=== PATIENT | male | born 1940 | race Caucasian/White ===

== ENCOUNTER 2021-03-09 02:18 | Observation (INO) | payer MEDICARE, OTHER ==
[~2021-03-09] VITALS: Ht 175.3 cm; Wt 98.2 kg
[2021-03-09 02:52] LABS: IMMATURE GRANULOCYTES 0.2 % (0.0-5.0); MEAN CELL VOLUME 103.3 fL CALC (80.0-100.0); MEAN CORPUSCULAR HGB 33.3 pG CALC (26.0-32.0); MEAN CORPUSCULAR HGB CONC 32.3 g/dL CAL (32.0-36.0); NEUT# 3.13 thou/uL (1.82-7.42); RED CELL DISTRI WIDTH 15.9 % (11.5-15.5)
[2021-03-09 03:08] LABS: ALBUMIN 2.9 g/dL (3.2-5.0); ALKALINE PHOSPHATASE 177 u/l (38-126); AMYLASE 66 u/l (30-110); ANION GAP 9 (6-22 (CALC)); BILIRUBIN, TOTAL 0.7 mg/dL (0.0-1.4); BUN 13 mg/dL (8-23); BUN/CREATININE RATIO 13 (12-20 (CALC)); CARBON DIOXIDE 29 mmol/l (22-30); CHLORIDE 103 mmol/l (95-108); GFR > 60 ML/MIN (>=60 (CALC)); GFR FOR AFR.AMER. > 60 ML/MIN (>=60 (CALC)); LIPASE 131 u/l (23-300); POTASSIUM 4.2 mmol/l (3.5-5.1); SGOT/AST 26 u/l (19-48); SODIUM 137 mmol/l (137-146); TOTAL PROTEIN 6.6 g/dL (6.3-8.2)
[2021-03-09 03:20] LABS: MYOGLOBIN 35 ng/mL (0 - 121)
--- NOTE | 2021-03-09 03:24 | NUR ---
PT AWARE OF PLAN OF CARE; STATES NO FURTHER ASSISTANCE AT THIS TIME
[2021-03-09] MEDS ORDERED: ASPIRIN81 MG PO (03:37)
[2021-03-09] MEDS ORDERED: CLONIDINE0.1 MG TOP (03:38)
[2021-03-09] MEDS ORDERED: STOOL SOFTENER100 M1 PO (03:40)
[2021-03-09] MEDS ORDERED: EQL IRON SUPPL325 MG PO (03:41)
[2021-03-09] MEDS ORDERED: CVS MELATONIN PO (04:03)
[2021-03-09] MEDS ORDERED: PANTOPRAZOLE SO40 M3 PO (04:04)
[2021-03-09] MEDS ORDERED: POTASSIUM CHLO20 ME2 PO (04:05)
[2021-03-09] MEDS ORDERED: TERAZOSIN1 MG PO (04:06)
[2021-03-09] MEDS ORDERED: AMIODARONE HYD200 M1 PO (04:07)
[2021-03-09] MEDS ORDERED: CARVEDILOL6.25 MG PO (04:08)
--- NOTE | 2021-03-09 04:51 | NUR ---
PT UPDATED ON PLAN OF CARE; STATES NO FURTHER ASSISTANCE AT THIS TIME
[2021-03-09 04:55] LABS: URINE BILIRUBIN - DIPSTICK NEGATIVE (NEGATIVE); URINE BLOOD DIPSTICK NEGATIVE (NEGATIVE); URINE COLOR YELLOW; URINE GLUCOSE - DIPSTICK NEGATIVE (NEGATIVE); URINE KETONE NEGATIVE (NEGATIVE); URINE LEUK ESTERASE NEGATIVE (NEGATIVE); URINE PH 5.5 (4.5-8.0); URINE PROTEIN - DIPSTICK NEGATIVE (NEG-TRACE); URINE UROBILINOGEN - DIPSTICK 0.2 E.U./dL (0.2)
[2021-03-09 04:59] LABS: URINE NITRITE - DIPSTICK NEGATIVE (Negative)
--- NOTE | 2021-03-09 06:29 | NUR ---
ATTEMPTED TO CALL REPORT; NOTIFIED OF DAY SHIFT NURSE COMING ON TO SHIFT AND WILL TAKE REPORT ONCE AVAILABLE
--- NOTE | 2021-03-09 07:00 | NUR ---
PT ARRIVES TO ROOM 271 VIA STRETCHER FROM ER ACCOMPANIED BY LISANDRA REEDER. PT IS ALERT AND ORIENTED X 3, LUNGS CLEAR, 3 LPM NC. PT WITH LEFT ARM WEAKNESS PER RECENT CVA. NO COMPLAINT OF CHEST PAIN OR SHORTNESS OF BREATH.
[2021-03-09 10:50] VITALS: BP 139/82
--- NOTE | 2021-03-09 12:49 | NUR ---
PT'S FAMILY HAS BEEN AT BEDSIDE TODAY, ASSISTING WITH FEEDING SINCE HE IS LEFT HANDED AND CVA HAS AFFECTED THAT SIDE. PT REMAINS FREE OF CHEST PAIN OR SHORNTESS OF BREATH. DR DO HAS BEEN IN ROOM, ANTICIPATE DISCHARGE THIS AFTERNOON IF TROPONINS REMAIN NEGATIVE.
[2021-03-09 14:30] VITALS: BP 122/71
--- NOTE | 2021-03-09 16:05 | NUR ---
PT HAS BEEN DISCHARGED BACK TO [facility]. IVs REMOVED, TELE BOX REMOVED, PT ASSISTED INTO WHEELCHAIR AND LEAVES [facility] IN STABLE CONDITION.
[2021-03-09] MEDS ORDERED: ZITHROMAX250 MG PO (20:12)
== END 2021-03-09 16:00 ==
LOC: ED 02:18 → ED-I 05:30 → ED 05:56 → MS2 05:57
PROVIDERS: Emergency Medicine; ADMIT Hospitalist; ATTEND Hospitalist
DX: R07.9 Chest pain, unspecified (principal); J18.9 Pneumonia, unspecified organism; I11.0 Hypertensive heart disease with heart failure; I50.9 Heart failure, unspecified; I48.91 Unspecified atrial fibrillation; I25.10 Atherosclerotic heart disease of native coronary artery without angina pectoris; Z95.1 Presence of aortocoronary bypass graft; Z99.81 Dependence on supplemental oxygen; Z20.822 Contact with and (suspected) exposure to COVID-19
CPT/HCPCS: Q9967